=== PATIENT | female | born 1955 | race Caucasian/White ===

== ENCOUNTER 2017-11-23 14:27 | Outpatient (CLI) | payer OTHER ==
[~2017-11-23 14:27] MED LIST: ACCUNEB0.63 MG/3; CEFADROXIL500 MG PO; CELEBREX100 MG PO; GLUMETZA1000 MG; LOSARTAN-HCTZ1 EAC1; NEURONTIN600 MG; PRED FORTE0.05 MG/DR
== END 2017-11-23 14:28 | disposition home or self-care (01) ==
LOC: LAB 14:27
DX: N39.0 Urinary tract infection, site not specified (principal); R10.84 Generalized abdominal pain

== ENCOUNTER 2017-11-24 07:31 | Outpatient (CLI) | payer OTHER | END 2017-11-24 08:04 | disposition home or self-care (01) | LOC: TOM 07:31 | DX: R10.84 Generalized abdominal pain (principal); K57.92 Diverticulitis of intestine, part unspecified, without perforation or abscess without bleeding | CPT/HCPCS: 74177; Q9965 ==

== ENCOUNTER 2017-11-26 09:04 | Emergency (ER) | payer OTHER ==
[~2017-11-26] VITALS: Ht 165.1 cm; Wt 99.8 kg
== END 2017-11-26 11:53 | disposition home or self-care (01) ==
LOC: ER 09:04
DX: N39.0 Urinary tract infection, site not specified (principal)

== ENCOUNTER 2018-09-21 17:33 | Emergency (ER) | payer OTHER ==
[~2018-09-21] VITALS: Ht 160 cm; Wt 97.5 kg
[2018-09-21] MEDS ORDERED: PHENERGAN25 MG (17:59)
[2018-09-21] MEDS ORDERED: [UNRECOGNIZED DRUG - OTHER] (17:59)
[2018-09-22] MEDS ORDERED: MUCINEX DM ER1 EAC1 PO (06:30)
[2018-09-22] MEDS ORDERED: CEFDINIR300 MG PO (06:30)
[2018-09-22] MEDS ORDERED: TESSALON PERLE100 M1 PO (06:30)
[2018-09-22] MEDS ORDERED: LEVALBUTER1.25 MG/3 IH (06:30)
[2018-09-22] MEDS ORDERED: BUDESONIDE0.5 MG/2 M IH (06:30)
[2018-09-22] MEDS ORDERED: MEDROLPACK PO (06:30)
== END 2018-09-22 06:42 | disposition home or self-care (01) ==
LOC: ER 17:33
DX: J20.9 Acute bronchitis, unspecified (principal); J06.9 Acute upper respiratory infection, unspecified

== ENCOUNTER 2021-05-13 08:00 | Inpatient (IN) | payer OTHER ==
[~2021-05-13] VITALS: Ht 160 cm; Wt 95.3 kg
[~2021-05-13 08:00] MED LIST changes: +BUDESONIDE0.5 MG/2 M IH; +CEFDINIR300 MG PO; +LEVALBUTER1.25 MG/3 IH; +MEDROLPACK PO; +MUCINEX DM ER1 EAC1 PO; +PHENERGAN25 MG; +TESSALON PERLE100 M1 PO; +[UNRECOGNIZED DRUG - OTHER]
[2021-05-13] MEDS ORDERED: HYDROCHLOROTHIA25 MG PO (14:30)
[2021-05-20] MEDS ORDERED: MEDROLPACK PO (13:33)
[2021-05-20] MEDS ORDERED: COLACE100 MG PO (13:33)
[2021-05-20] MEDS ORDERED: DIAZEPAM5 MG PO (13:33)
[2021-05-20] MEDS ORDERED: PERCOCET 5-3251 EACH PO (13:33)
== END 2021-05-21 12:24 | disposition home or self-care (01) | DRG 473 ==
LOC: ADM 08:00 → EDSTATUS 10:30 → O/R 05-20 06:00 → SURG 05-20 06:00 → SURH 05-20 10:30 → SURG 05-20 20:03
PROVIDERS: ADMIT Orthopaedic Surgery Orthopaedic Surgery of the Spine; ATTEND Orthopaedic Surgery Orthopaedic Surgery of the Spine
PROC: 0RG2070 Fusion of 2 or more Cervical Vertebral Joints with Autologous Tissue Substitute, Anterior Approach, Anterior Column, Open Approach (ICD-10-PCS; 2021-05-20)
PROC: 07DS0ZZ Extraction of Vertebral Bone Marrow, Open Approach (ICD-10-PCS; 2021-05-20)
PROC: 0RG20A0 Fusion of 2 or more Cervical Vertebral Joints with Interbody Fusion Device, Anterior Approach, Anterior Column, Open Approach (ICD-10-PCS; principal; 2021-05-20 10:30)
DX: M50.023 Cervical disc disorder at C6-C7 level with myelopathy (principal)

== ENCOUNTER 2021-05-20 07:43 | Outpatient (CLI) | payer OTHER ==
[~2021-05-20 07:43] MED LIST changes: +HYDROCHLOROTHIA25 MG PO
[2021-05-20] MEDS ORDERED: COLACE100 MG PO (13:33)
[2021-05-20] MEDS ORDERED: MEDROLPACK PO (13:33)
[2021-05-20] MEDS ORDERED: PERCOCET 5-3251 EACH PO (13:33)
[2021-05-20] MEDS ORDERED: DIAZEPAM5 MG PO (13:33)
== END 2021-05-20 07:44 | disposition home or self-care (01) ==
LOC: LAB 07:43
PROVIDERS: ATTEND Orthopaedic Surgery Orthopaedic Surgery of the Spine
DX: Z03.818 Encounter for observation for suspected exposure to other biological agents ruled out (principal); Z20.828 Contact with and (suspected) exposure to other viral communicable diseases

== ENCOUNTER → 2025-03-13 | Emergency (ER) | payer OTHER ==
[~2025-03-13] VITALS: Ht 165.1 cm; Wt 89.4 kg
[~2025-03-13] MED LIST changes: +ACETAMINOPHEN500 M1 PO; +COLACE100 MG PO; +DIAZEPAM5 MG PO; +GILTUSS COUGH-118 M1 PO; +IPRATROPIUM BROMIDE 0.5 MG/2.5 ML AMPUL.NEB IH ONE; +LEVALBUTEROL HCL 1.25 MG/3 ML SOLUTION IH ONE; +PERCOCET 5-3251 EACH PO
[2025-03-13 17:17] LABS: BASO % 0.9 % (0.1-1.2); EOS # 0.22 (0.04-0.54); EOS % 2.5 % (0.7-7.0); HEMATOCRIT 41.1 % (34.1-44.9); HEMOGLOBIN 13.1 g/dL (11.2-15.7); LYMPH # 2.56 (1.18-3.74); LYMPH % 29.3 % (19.3-53.1); MEAN CORPUSCULAR HEMOGLOBIN 25.4 pg (25.6-32.2); MONO # 0.55 (0.24-0.82); MONO % 6.3 % (4.7-12.5); NEUT # 5.29 (1.56-6.13); NEUT % 60.7 % (34.0-71.1); PLATELET COUNT 231 K/uL (163-369); RED BLOOD COUNT 5.16 M/uL (3.93-5.22); RED CELL DISTRIBUTION WIDTH 13.8 % (11.6-14.4)
[2025-03-13 17:35] LABS: COVID-19 AG NEGATIVE (NEGATIVE)
[2025-03-13 17:50] LABS: INFLUENZA A AG NEGATIVE (NEGATIVE); INFLUENZA B AG NEGATIVE (NEGATIVE)
== END | disposition home or self-care (01) ==
LOC: ER 13:59
PROVIDERS: Preventive Medicine Public Health & General Preventive Medicine
DX: B34.9 Viral infection, unspecified (principal); J00 Acute nasopharyngitis [common cold]; Z20.822 Contact with and (suspected) exposure to COVID-19; I10 Essential (primary) hypertension; E11.9 Type 2 diabetes mellitus without complications; Z79.84 Long term (current) use of oral hypoglycemic drugs